=== PATIENT | male | born 1995 | race Two or more races ===

== ENCOUNTER → 2020-12-24 | Outpatient (CLI) | payer OTHER | END | disposition home or self-care (01) | LOC: PPH VACUNA 15:29 | DX: Z23 Encounter for immunization (principal) ==

== ENCOUNTER → 2021-01-14 13:41 | Outpatient (CLI) | payer OTHER | END | disposition home or self-care (01) | LOC: PPH VACUNA 13:41 | DX: Z23 Encounter for immunization (principal) ==